=== PATIENT | male | born 1975 | race Caucasian/White ===

== ENCOUNTER 2017-06-15 07:46 | Emergency (ER) | payer MEDICAID ==
[~2017-06-15] VITALS: Ht 162.6 cm; Wt 74.0 kg
[2017-06-15 07:48] VITALS: Ht 162.6 cm; Wt 74.0 kg
[2017-06-15] MEDS ORDERED: AMOX1TAB10 PO (08:06)
[2017-06-15] MEDS ORDERED: NPH10OT RIGHT EAR (08:06)
[2017-06-15] MEDS ORDERED: ACET500C5 PO (08:07)
[2017-06-15] MEDS ORDERED: IBUP800T25 PO (08:07)
--- NOTE | 2017-06-15 08:15 | ERD ---
ER Documentation Chief Complaint Date/Time DATE: 06/15/17 TIME: 08:12 Chief Complaint rt ear pain x 4 days HPI This is a 41-year-old male who presents the emergency department today complaining of right ear pain for the past 4 days. Patient states that he has some occult hearing out of that ear. States he took Tylenol this morning. Denies any fevers or chills. ROS All systems reviewed and are negative except as per history of present illness. Medications Home Meds Active Scripts Acetaminophen* (Tylophen*) 500 Mg Capsule, 1 CAP PO Q6H Y for PAIN AND OR ELEVATED TEMP, #30 CAP Prov:ORLY PRUITT PA-C 06/15/17 Ibuprofen* (Motrin*) 800 Mg Tab, 800 MG PO Q6, #30 TAB Prov:ORLY PRUITT PA-C 06/15/17 Neomycin/Polymyxin/Hydrocort* (Cortisporin* Otic) 10 Ml Susp, 4 DROP RIGHT EAR QID for 7 Days, EA Prov:ORLY PRUITT PA-C 06/15/17 Amoxicillin/Potassium Clav (Amox-Clav 875-125 mg Tablet) 875-125 mg Tab, 1 TAB PO BID for 7 Days, #14 TAB Prov:ORLY PRUITT PA-C 06/15/17 Physical Exam Vitals Vital Signs Date Time Temp Pulse Resp B/P Pulse Ox O2 Delivery O2 Flow Rate FiO2 06/15/17 07:48 97.8 76 18 140/78 98 Physical Exam Const: No acute distress Head: Atraumatic Eyes: Normal Conjunctiva ENT: Right ear with mild TM erythema and drainage. Left ear TM normal. Nontender mastoid. Nose no drainage. Throat erythema no exudate no vesicles Neck: Full range of motion..~ No meningismus. Resp: Clear to auscultation bilaterally Cardio: Regular rate and rhythm, no murmurs Skin: No petechiae or rashes Neur: Awake and alert Psych: Normal Mood and Affect Results 24 hrs Current Medications Medications (Trade) Dose Ordered Sig/Bisi Route PRN Reason Start Time Stop Time Status Last Admin Dose Admin Ibuprofen (Motrin) 800 mg ONCE ONCE PO 06/15/17 08:30 06/15/17 08:31 06/15/17 08:08 Procedures/MDM This 41-year-old male presents emergency department today complaining of right ear pain for the past 4 days. On physical exam patient has some drainage from his right ear. He has no mastoid tenderness. He is afebrile and otherwise well -appearing. Symptoms at this time is consistent with otitis externa. He did have some mild TM erythema as well and I did also consider otitis media as well. Low suspicion for mastoiditis. Patient has no other URI symptoms. Patient was driving himself here to the emergency department. He was given Motrin here in the emergency department. He is given a prescription for Augmentin, Cortisporin, Tylenol and Motrin for home. At this time the patient is stable for discharge and outpatient management. Patient should follow up with their PCP in the next 1-2 days. They may return to the emergency department sooner for any persistent or worsening of symptoms. Patient understood and agreed with the plan. Departure Diagnosis: Primary Impression: Right ear pain Condition: Fair Patient Instructions: Otitis Externa (Child) Referrals: [facility] ted se eden hecho un examen mdico de control que le indica que no est en hiren condicin que requiera tratamiento urgente en el Departamento de Emergencia. Un estudio ms profundo y el tratamiento de ospina condicin pueden esperar sin ningn riesgo hasta que usted sea atendida/o en el consultorio de ospina mdico o hiren cl ana. Es responsabilidad suya arreglar hiren sera para el seguimiento del suhas. MANEJO DE CONDICIONES NO URGENTES EN EL FUTURO 1) Si usted tiene un mdico de atencin primaria: Usted debera llamar a ospina mdico de atencin primaria antes de venir al departamento de emergencia. Despus de las horas de consultorio, ospina doctor o ospina asociado/a est disponible por telfono. El mdico o enfermero de rahel en el servicio telefnico puede asesorarle por salvador medio para atender el problema, o suhas contrario se puede programar hiren sera. 2) Si usted no tiene un mdico de atencin primaria: Llame al mdico o clnica de referencia que aparece abajo jesika las horas de consultorio para hacer hiren sera para que le vean. CLINICAS: [facility] [phone] [facility] [phone] [place] [phone] [place] [phone] [place] [phone] [facility] [phone] [address] Additional Instructions: Llame al doctor MAANA y farooq hiren SERA PARA DENTRO DE 1-2 FATIMA.Dgale a la secretaria que nosotros le instruimos hacer esta sera.Avise o llame si ospina condicin se empeora antes de la sera. Regresa aqui si peor o no mejor. Use antibiotics as prescribed Take Tylenol or Motrin for pain ORLY PRUITT PA-C Jun 15, 2017 08:14
[2017-06-15] MEDS ORDERED: IBUPROFEN 800 MG TAB PO ONE (08:30)
== END 2017-06-15 08:15 | disposition home or self-care (01) ==
LOC: FTE 07:46
DX: H92.01 Otalgia, right ear (principal)
CPT/HCPCS: Z7502; Z7610; 99283

== ENCOUNTER 2017-11-10 07:51 | Emergency (ER) | END 2017-11-10 09:53 | disposition home or self-care (01) ==